=== PATIENT | female | born 1940 | race Caucasian/White ===

== ENCOUNTER 2021-03-07 16:54 | Emergency (ER) | payer BC, OTHER ==
[2021-03-07 17:05] VITALS: BMI 39.6
[2021-03-07] MEDS ORDERED: AZITHROMYCIN 500 MG TABLET PO ONE (21:25)
[2021-03-07] MEDS ORDERED: AZITHROMYCIN 250 MG TABLET ONE (22:05)
[2021-03-07 22:12] VITALS: BP 150/74; PULSE 88; TEMP 98.5
== END 2021-03-07 22:51 | disposition home or self-care (01) ==
LOC: JER 16:54
DX: J18.9 Pneumonia, unspecified organism (principal)
CPT/HCPCS: 71046-TC-FY; 99284-25; C9803; U0003; U0005